=== PATIENT | female | born 1950 | race Hispanic/Latino ===

== ENCOUNTER 2023-04-21 23:52 | Emergency (ER) | payer MEDICARE, OTHER ==
[~2023-04-21] VITALS: Ht 157.5 cm; Wt 69.4 kg
[2023-04-22] MEDS ORDERED: DEXAMETHASONE SOD PHOSPHATE 4 MG/ML 1ML VIAL IVP ONE (01:00)
[2023-04-22] MEDS ORDERED: GABAPENTIN 300 MG CAPSULE PO SCH (01:00)
[2023-04-22] MEDS ORDERED: DEXAMETHASONE SOD PHOSPHATE 4 MG/ML 1ML VIAL IM ONE (01:00)
[2023-04-22] MEDS ORDERED: IBUPROFEN 800 MG TAB PO ONE (01:00)
[2023-04-22 01:01] VITALS: BP 17/86; PULSE 76; RESP 16; O2SAT 98
[2023-04-22] MEDS ORDERED: IBUP-1493 PO (01:28)
[2023-04-22] MEDS ORDERED: GABA300C PO (01:28)
[2023-04-22] MEDS ORDERED: PRED20TA3 PO (01:28)
[2023-04-22] MEDS ORDERED: TAMS-1 PO (01:28)
== END 2023-04-22 01:45 | disposition home or self-care (01) ==
LOC: EDH 23:52
DX: M54.12 Radiculopathy, cervical region (principal); N88.2 Stricture and stenosis of cervix uteri; M19.09 Primary osteoarthritis, other specified site; E11.9 Type 2 diabetes mellitus without complications; E78.00 Pure hypercholesterolemia, unspecified; I10 Essential (primary) hypertension; Z90.49 Acquired absence of other specified parts of digestive tract
CPT/HCPCS: 99285; 72125; 96372; J1100

== ENCOUNTER 2023-04-28 04:26 | Emergency (ER) | payer OTHER ==
[~2023-04-28] VITALS: Ht 157.5 cm; Wt 68.0 kg
[~2023-04-28 04:26] MED LIST: GABA300C PO; IBUP-1493 PO; PRED20TA3 PO; TAMS-1 PO
[2023-04-28 05:36] LABS: BASOPHILS # (AUTO) 0.01 K/uL (0.00-0.20); BASOPHILS % (AUTO) 0.1 % (0.0-5.0); EOSINOPHILS # (AUTO) 0.05 K/uL (0.00-0.70); EOSINOPHILS % (AUTO) 0.5 % (0.0-8.0); HEMATOCRIT 35.8 % (36-48); IMMATURE GRANULOCYTE ABSOLUTE 0.08 K/uL (0-1); LYMPHOCYTES # (AUTO) 3.5 K/uL (1.0-4.8); LYMPHOCYTES % (AUTO) 31.8 % (21.0-51.0); MEAN CORPUSCULAR HEMOGLOBIN 30.9 pg (27.0-33.0); MEAN CORPUSCULAR HGB CONC 34.4 g/dL (32.0-36.0); MEAN CORPUSCULAR VOLUME 89.9 fL (79-99); MONOCYTES # (AUTO) 1.1 K/uL (0.1-1.0); MONOCYTES % (AUTO) 10.3 % (3.0-13.0); NEUTROPHILS # (AUTO) 6.2 K/uL (1.8-7.7); NEUTROPHILS % (AUTO) 56.6 % (40.0-77.0); PLATELET COUNT (AUTO) 391 K/uL (130-400); RED BLOOD CELL COUNT(AUTO) 3.98 MIL/uL (4.00-5.50); RED CELL DISTRIBUTION WIDTH 12.6 % (11.0-15.5)
[2023-04-28 05:55] LABS: APPEARANCE,URINE CLEAR (CLEAR); BILIRUBIN,URINE NEGATIVE (NEGATIVE); COLOR,URINE COLORLESS (YELLOW); GLUCOSE, URINE (UA) NEGATIVE (NEGATIVE); KETONES,URINE NEGATIVE (NEGATIVE); LEUKOCYTE ESTERASE ,URINE NEGATIVE Leu/uL (NEGATIVE); NITRATE,URINE NEGATIVE (NEGATIVE); OCCULT BLOOD,URINE NEGATIVE (NEGATIVE); PH,URINE 6.5 (5.0-8.0); PROTEIN,URINE NEGATIVE (NEGATIVE); UROBILINOGEN,URINE 0.2 mg/dL (0.2-1.0)
[2023-04-28 05:55] LABS: CREATININE 0.8 mg/dL (0.5-1.5); POTASSIUM 4.1 mmol/L (3.5-5.1)
[2023-04-28 05:56] LABS: ADD UA MICROSCOPIC NO
[2023-04-28 06:01] LABS: ALBUMIN 3.3 g/dL (3.5-5.0); BILIRUBIN,TOTAL 0.4 mg/dL (0.2-1.0); MAGNESIUM 2.2 mg/dL (1.80-2.40); TOTAL PROTEIN, SERUM 6.5 g/dL (6.0-8.3)
[2023-04-28] MEDS ORDERED: CLONIDINE HCL 0.2 MG TABLET PO ONE (06:30)
[2023-04-28] MEDS ORDERED: MORPHINE 2 MG SYG IM ONE (06:30)
[2023-04-28] MEDS ORDERED: ONDANSETRON 4MG INJ IVP ONE (06:30)
[2023-04-28 07:50] VITALS: BP 118/63; PULSE 70; RESP 16; O2SAT 99
== END 2023-04-28 07:51 | disposition home or self-care (01) ==
LOC: EDH 04:26
DX: M54.12 Radiculopathy, cervical region (principal); M19.91 Primary osteoarthritis, unspecified site; E11.9 Type 2 diabetes mellitus without complications; E78.00 Pure hypercholesterolemia, unspecified; I10 Essential (primary) hypertension; M19.011 Primary osteoarthritis, right shoulder; Z79.1 Long term (current) use of non-steroidal anti-inflammatories (NSAID); Z79.899 Other long term (current) drug therapy; Z90.49 Acquired absence of other specified parts of digestive tract
CPT/HCPCS: 99285; 96374; 71045; 82550; 83735; 84484; 80053; 85025; 81003; 36415; 96372; 93005; J2270; J2405

== ENCOUNTER 2023-09-09 21:16 | Emergency (ER) | payer OTHER ==
[~2023-09-09] VITALS: Ht 157.5 cm; Wt 71.2 kg
[2023-09-09 21:51] LABS: BASOPHILS # (AUTO) 0.03 K/uL (0.00-0.20); BASOPHILS % (AUTO) 0.4 % (0.0-5.0); EOSINOPHILS # (AUTO) 0.04 K/uL (0.00-0.70); EOSINOPHILS % (AUTO) 0.6 % (0.0-8.0); HEMATOCRIT 32.4 % (36-48); IMMATURE GRANULOCYTE ABSOLUTE 0.01 K/uL (0-1); LYMPHOCYTES % (AUTO) 28.5 % (21.0-51.0); MEAN CORPUSCULAR HEMOGLOBIN 30.5 pg (27.0-33.0); MEAN CORPUSCULAR HGB CONC 34.3 g/dL (32.0-36.0); MONOCYTES # (AUTO) 0.4 K/uL (0.1-1.0); MONOCYTES % (AUTO) 6.2 % (3.0-13.0); NEUTROPHILS # (AUTO) 4.5 K/uL (1.8-7.7); NEUTROPHILS % (AUTO) 64.2 % (40.0-77.0); PLATELET COUNT (AUTO) 344 K/uL (130-400); RED BLOOD CELL COUNT(AUTO) 3.64 MIL/uL (4.00-5.50); RED CELL DISTRIBUTION WIDTH 12.1 % (11.0-15.5); WHITE BLOOD COUNT (AUTO) 7.1 K/uL (4.8-10.8)
[2023-09-09] MEDS: KETOROLAC 15MG/ML VIAL (15MG/ML) IM ONE (22:00)
[2023-09-09] MEDS: AMLODIPINE 5 MG TAB PO ONE (22:01)
[2023-09-09 22:03] LABS: CREATININE 0.9 mg/dL (0.5-1.0); POTASSIUM 4.1 mmol/L (3.5-5.1)
[2023-09-09 22:07] LABS: ALBUMIN 3.7 g/dL (3.5-5.0); BILIRUBIN,TOTAL 0.4 mg/dL (0.2-1.0); TOTAL PROTEIN, SERUM 6.8 g/dL (6.0-8.3)
[2023-09-09] MEDS ORDERED: OXYC-38 PO (22:22)
[2023-09-09] MEDS ORDERED: CYCL10TA16 PO (22:22)
[2023-09-09 22:49] VITALS: BP 160/76; PULSE 75; RESP 20; O2SAT 96
== END 2023-09-09 23:13 | disposition home or self-care (01) ==
LOC: EDH 21:16
DX: M48.02 Spinal stenosis, cervical region (principal); M47.22 Other spondylosis with radiculopathy, cervical region; I10 Essential (primary) hypertension; E78.00 Pure hypercholesterolemia, unspecified; E11.9 Type 2 diabetes mellitus without complications; Z79.899 Other long term (current) drug therapy; Z98.890 Other specified postprocedural states
CPT/HCPCS: 99284; 84484; 80053; 85025; 36415; 96372; 93005; J1885

== ENCOUNTER 2024-05-20 17:38 | Observation (INO) | payer OTHER ==
[~2024-05-20] VITALS: Ht 154.9 cm; Wt 67.6 kg
[~2024-05-20 17:38] MED LIST changes: +CYCL10TA16 PO; +OXYC-38 PO
--- NOTE | 2024-05-20 18:12 | EKG ---
[facility] Test Date: 2024-05-20 Test Time: 18:09:21 Pat Name: VIVIANA KULKARNI Department: [facility] Room: ED Gender: F Corporate Driver: [id number] Requested By: ANGEL HERNANDEZ Order Number: [id number] Reading MD: Checo Bill Measurements Intervals [place] Rate: 82 P: 146 ME: 152 QRS: 46 QRSD: 78 T: 122 QT: 353 QTc: 413 Interpretive Statements Sinus or ectopic atrial rhythm Probable left atrial enlargement Low voltage, extremity leads Abnormal T, consider ischemia, lateral leads Compared to ECG 09/09/2023 21:48:07 Ectopic atrial rhythm now present T-wave abnormality now present Possible ischemia now present Sinus rhythm no longer present Electronically Signed On 05-21-2024 19:13:04 FIGURINE MAKER by Checo Bill Please click the below link to view image of tracing.
--- NOTE | 2024-05-20 18:31 | HMCIMG ---
CT HEAD WITHOUT CONTRAST INDICATION: Headache TECHNIQUE: Noncontrast axial helical CT images from the vertex through the skull base using 5 mm slice thickness without contrast material. CT was performed with one or more of the following dose reduction techniques: Automated exposure control, adjustment of the mA and/or kV according to patient size, or use of iterative reconstruction technique. COMPARISON: None FINDINGS: The cerebral and cerebellar hemispheres are age-appropriate in appearance. No evidence for abnormal extra-axial fluid collections or masses. The ventricles and sulci are normal in size and configuration. No evidence for intracranial parenchymal, epidural, or subdural hemorrhage, mass effect or midline shift. The will-white matter differentiation is well preserved. No secondary evidence to suggest acute ischemia. The brainstem and cerebellum appear normal. The visualized orbits appear unremarkable. The visible paranasal sinuses and mastoid air cells are clear. The calvarium appears normal. IMPRESSION: No acute intracranial process identified.
[2024-05-20 19:07] LABS: BASOPHILS # (AUTO) 0.01 K/uL (0.00-0.20); BASOPHILS % (AUTO) 0.2 % (0.0-5.0); HEMATOCRIT 33.9 % (36-48); IMMATURE GRANULOCYTE ABSOLUTE 0.01 K/uL (0-1); LYMPHOCYTES # (AUTO) 1.4 K/uL (1.0-4.8); LYMPHOCYTES % (AUTO) 23.8 % (21.0-51.0); MEAN CORPUSCULAR HEMOGLOBIN 30.7 pg (27.0-33.0); MEAN CORPUSCULAR HGB CONC 34.2 g/dL (32.0-36.0); MEAN CORPUSCULAR VOLUME 89.7 fL (79-99); MONOCYTES # (AUTO) 0.2 K/uL (0.1-1.0); NEUTROPHILS # (AUTO) 4.2 K/uL (1.8-7.7); NEUTROPHILS % (AUTO) 71.8 % (40.0-77.0); PLATELET COUNT (AUTO) 470 K/uL (130-400); RED BLOOD CELL COUNT(AUTO) 3.78 MIL/uL (4.00-5.50); RED CELL DISTRIBUTION WIDTH 11.9 % (11.0-15.5); WHITE BLOOD COUNT (AUTO) 5.8 K/uL (4.8-10.8)
[2024-05-20 19:08] LABS: CREATININE 0.6 mg/dL (0.5-1.0); POTASSIUM 4.2 mmol/L (3.5-5.1)
[2024-05-20 19:12] LABS: MAGNESIUM 1.6 mg/dL (1.80-2.40)
[2024-05-20 19:17] LABS: APPEARANCE,URINE CLEAR (CLEAR); BILIRUBIN,URINE NEGATIVE (NEGATIVE); COLOR,URINE LIGHT-YELLOW (YELLOW); GLUCOSE, URINE (UA) NEGATIVE (NEGATIVE); KETONES,URINE 5 mg/dL (NEGATIVE); LEUKOCYTE ESTERASE ,URINE 75 Leu/uL (NEGATIVE); NITRATE,URINE NEGATIVE (NEGATIVE); OCCULT BLOOD,URINE NEGATIVE (NEGATIVE); PROTEIN,URINE NEGATIVE (NEGATIVE); UROBILINOGEN,URINE 0.2 mg/dL (0.2-1.0)
[2024-05-20 19:18] LABS: ADD UA MICROSCOPIC YES
[2024-05-20 19:20] LABS: MUCUS,URINE RARE LPF (None Seen); OTHER CASTS, URINE 1 /LPF (None Seen); SQUAMOUS EPITHELIAL CELL,UR RARE /HPF (0-2)
[2024-05-20 19:31] LABS: B-TYPE NATRIURETIC PEPTIDE 71 pg/mL (0-100)
--- NOTE | 2024-05-20 19:57 | ERN ---
ED Note History of Present Illness Stated Complaint: HEADACHE, HIGH BLOOD PRESSURE, WEAKNESS Chief Complaint: Hypertension Time Seen by MD: 17:43 Time Seen by Midlevel: 17:43 Dictation: The patient is a 73-year-old female with a history of hypertension, hyperlipidemia, prediabetes who presents to the emergency department with complaints of frontal headache, nausea nonbloody vomiting, weakness onset 6:00 a.m.. Patient reports also that her blood pressure has been elevated at home. Reports blood pressure of 204/114. Denies any chest pain or shortness of breath. Denies any use of blood thinners. Denies any head trauma. Allergies: Coded Allergies: No Known Drug Allergies (Unverified Allergy, Unknown, 04/21/23) Home Meds Active Scripts Oxycodone HCl/Acetaminophen (Percocet 5-325 mg Tablet) 5 Mg-325 Mg Tablet, 1 EACH PO q8 for pain, #16 TAB 0 Refills Prov:TEVIN TIERNEY MD 09/09/23 Cyclobenzaprine HCl (Flexeril) 10 Mg Tab, 5 MG PO TID for muscle sstiffness, #14 TAB 0 Refills Prov:TEVIN TIERNEY MD 09/09/23 Prednisone (Prednisone) 20 Mg Tablet, 1 TAB PO AD for 6 Days, #14 TAB 0 Refills TAKE 3 TAB BY MOUTH daily X3 DAYS, THEN TAKE 2 TAB BY MOUTH daily X2 DAYS, THEN TAKE 1 TAB BY MOUTH ONCE A DAY X1 DAY. Prov:BAIRON TRAVIS MD 04/22/23 Tamsulosin HCl (Flomax) 0.4 Mg Cap.er.24h, 0.4 MG PO DAILY, #10 CAPSULE. Prov:BAIRON TRAVIS MD 04/22/23 Ibuprofen (Motrin/Advil) 800 Mg Tab, 800 MG PO TID, #30 TAB Prov:BAIRON TRAVIS MD 04/22/23 Gabapentin (Neurontin) 300 Mg Capsule, 300 MG PO TID, #60 CAP Prov:BAIRON TRAVIS MD 04/22/23 Past Medical History Past Medical History: Diabetes-Type II, High Cholesterol, Hypertension Additional Past Medical Hx: RT SHOULDER ARTHRITIS Surgical History: None Family History: Negative Social History: Negative, Lives with family History: Not Applicable RN Note Reviewed/Agreed w/PFSH: Yes Review of System Dictation Constitutional: Negative for fever,chills, and weight loss Eyes: Negative for injury, pain,redness, and discharge ENT: Negative for injury,pain or swelling Cardiovascular: Negative for chest pain, palpitations, and edema Respiratory: Negative for shortness of breath, cough, and wheezing, Abdomen/GI: Negative for abdominal pain, , diarrhea, and constipation positive for nausea and vomiting Back: Negative for injury and pain : Negative for injury, bleeding and discharge MS/Extremity: Negative for injury and deformity Skin: Negative for rash, and discoloration Neuro: Negative for numbness, tingling, and seizure positive for headache, weakness, Psych: Negative for suicide ideation, homicidal ideation, and hallucinations Initial Vital Sign VS Vital Signs Date Time Temp Pulse Resp B/P (MAP) Pulse Ox O2 Delivery O2 Flow Rate FiO2 05/20/24 18:47 98.1 85 20 182/93 98 Room Air 05/20/24 22:07 0 21 Physical Exam Dictation Vital Signs reviewed General Appearance: Alert, oriented x 3, no acute distress, well developed, nourished. Head and Face: non-traumatic. Eyes: PERRL, pink conjunctivas, eyelid no trauma, anterior chamber with arcus senilis. Ears: Pinnas intact and no signs of trauma or erythema ear canals clear and no discharge TM no erythema Nose: No discharge, no bleeding. Oropharynx: Mouth normal, tongue pink. pharynx clear,no erythema, tonsils no exudates, no abscesses noted, mucous membrane moist Neck: Supple, non-tender, no thyromegaly, no masses, no JVD, no bruits Breast:Deferred Chest:No tenderness, no crepitus, no paradoxical movement, no retractions Lungs:Clear, well-ventilated, symmetric, no rales, no wheezing, no rhonchi, no stridor, good breath sounds bilaterally Heart: Regular rate, regular rhythm, no murmur, no gallops Vascular: no peripheral edema, Abdomen: Soft, positive bowel sounds, nondistended, no guarding, nontender, no rebound, no masses no hepatomegaly, no splenomegaly, no Herrmann's sign, no hernias. Rectal: Deferred Genital: Deferred Neurological: Normal speech, motor function intact, sensory function intact , upper extremities equal in strength, lower extremities equal in strength Musculoskeletal: Neck nontender, full range of motion, back nontender, full range of motion, Extremities: nontender, full range of motion Skin: Color pink, dry, no turgor, no rash, no lacerations, no abrasions, no contusions. Lymphatic: Deferred Results (Laboratory/Radiology) Laboratory/Radiology Laboratory Tests Test 05/20/24 18:25 05/20/24 18:28 White Blood Count 5.8 K/uL (4.8-10.8) Red Blood Count 3.78 MIL/uL (4.00-5.50) L Hemoglobin 11.6 g/dL (12.0-16.0) L Hematocrit 33.9 % (36-48) L Mean Corpuscular Volume 89.7 fL (79-99) Mean Corpuscular Hemoglobin 30.7 pg (27.0-33.0) Mean Corpuscular Hemoglobin Concent 34.2 g/dL (32.0-36.0) Red Cell Distribution Width 11.9 % (11.0-15.5) Platelet Count 470 K/uL (130-400) H Mean Platelet Volume 9.3 fL (7.5-10.5) Immature Granulocyte % (Auto) 0.2 % (0-1) Neutrophils (%) (Auto) 71.8 % (40.0-77.0) Lymphocytes (%) (Auto) 23.8 % (21.0-51.0) Monocytes (%) (Auto) 4.0 % (3.0-13.0) Eosinophils (%) (Auto) 0.0 % (0.0-8.0) Basophils (%) (Auto) 0.2 % (0.0-5.0) Neutrophils # (Auto) 4.2 K/uL (1.8-7.7) Lymphocytes # (Auto) 1.4 K/uL (1.0-4.8) Monocytes # (Auto) 0.2 K/uL (0.1-1.0) Eosinophils # (Auto) 0.00 K/uL (0.00-0.70) Basophils # (Auto) 0.01 K/uL (0.00-0.20) Absolute Immature Granulocyte (auto 0.01 K/uL (0-1) Nucleated Red Blood Cells 0.0 % (0.0-0.19) Sodium Level 129 mmol/L (136-145) L Potassium Level 4.2 mmol/L (3.5-5.1) Chloride Level 93 mmol/L (101-111) L Carbon Dioxide Level 29 mmol/L (21-32) Blood Urea Nitrogen 7 mg/dL (7-18) Creatinine 0.6 mg/dL (0.5-1.0) Glomerular Filtration Rate Calc 95 mL/min (>90) Random Glucose 150 mg/dL (70-105) H Total Calcium 8.9 mg/dL (8.5-10.1) Magnesium Level 1.60 mg/dL (1.80-2.40) L Total Creatine Kinase 72 U/L (21-232) Troponin I High Sensitivity < 4 ng/L (4-50) L B-Type Natriuretic Peptide 71 pg/mL (0-100) Urine Color LIGHT-YELLOW (YELLOW) Urine Appearance CLEAR (CLEAR) Urine pH 6.0 (5.0-8.0) Urine Specific [place] 1.016 (1.001-1.031) Urine Protein NEGATIVE mg/dL (NEGATIVE) Urine Glucose (UA) NEGATIVE mg/dL (NEGATIVE) Urine Ketones 5 mg/dL (NEGATIVE) H Urine Occult Blood NEGATIVE (NEGATIVE) Urine Nitrate NEGATIVE (NEGATIVE) Urine Bilirubin NEGATIVE mg/dL (NEGATIVE) Urine Urobilinogen 0.2 mg/dL (0.2-1.0) Urine Leukocyte Esterase 75 Cristina/uL (NEGATIVE) H Urine RBC 2-5 /HPF (0-1) H Urine WBC 6-10 /HPF (0-1) H Urine Squamous Epithelial Cells RARE /HPF (0-2) Urine Bacteria None /HPF (None Seen) Urine Other Casts 1 /LPF (None Seen) REASON: headache ORDERING PHYSICIAN: ANGEL HERNANDEZ PROCEDURE: HEAD WO - CT HEAD/BRAIN W/O CONTRAST CT HEAD WITHOUT CONTRAST INDICATION: Headache TECHNIQUE: Noncontrast axial helical CT images from the vertex through the skull base using 5 mm slice thickness without contrast material. CT was performed with one or more of the following dose reduction techniques: Automated exposure control, adjustment of the mA and/or kV according to patient size, or use of iterative reconstruction technique. COMPARISON: None FINDINGS: The cerebral and cerebellar hemispheres are age-appropriate in appearance. No evidence for abnormal extra-axial fluid collections or masses. The ventricles and sulci are normal in size and configuration. No evidence for intracranial parenchymal, epidural, or subdural hemorrhage, mass effect or midline shift. The will-white matter differentiation is well preserved. No secondary evidence to suggest acute ischemia. The brainstem and cerebellum appear normal. The visualized orbits appear unremarkable. The visible paranasal sinuses and mastoid air cells are clear. The calvarium appears normal. IMPRESSION: No acute intracranial process identified. REASON: cough ORDERING PHYSICIAN: ANGEL HERNANDEZ PATIENT ACCOUNT ANALYST PROCEDURE: CXR1VW - CHEST 1VW INDICATION: cough TECHNIQUE: CHEST 1VW COMPARISON: 04/20/2023 FINDINGS AND IMPRESSION: No acute consolidation or pleural effusion. Cardiac silhouette is within normal limits. Mild degenerative changes of the spine. The visualized upper abdomen appears unremarkable. Labs Reviewed?: Yes EKG: (+) rhythm (Sinus rhythm) EKG Comment: Date:05/20/2024 Time:1809 Ventricular rate:82 MS interval:152 QRS duration:78 QT/QTc:413 EKG interpretation: Sinus rhythm Reviewed by ED Attending no STEMI ED Course ED Course Orders Procedure Category Date Status Time Cbc With Differential LAB 05/20/24 Complete 18:00 B-Type Natriuretic LAB 05/20/24 Complete Peptide 18:00 Chest 1vw RAD 05/20/24 Resulted 18:00 12 Lead Ekg Tracing- EKG 05/20/24 Complete Technical 18:00 Magnesium LAB 05/20/24 Complete 18:00 Creatine Kinase, Total LAB 05/20/24 Complete 18:00 Troponin I High LAB 05/20/24 Complete Sensitivity 18:00 Urinalysis Profile LAB 05/20/24 Complete 18:00 Basic Metabolic Panel LAB 05/20/24 Complete 18:00 Ct Head/Brain W/O CT 05/20/24 Resulted Contrast 18:00 0.9%Nacl 1000ml (Ns PHA 05/20/24 In Process 1000ml) 19:00 Acetaminophen 500mg PHA 05/20/24 Complete Tab (Tylenol 500mg T 19:00 Hydralazine 20mg Inj PHA 05/20/24 Complete (Apresoline 20mg In 19:00 Culture Urine KAILYN 05/20/24 In Process 19:18 Ceftriaxone 1g Vial PHA 05/20/24 Complete (Rocephine 1g Inj) 20:30 Magnesium 2gm Premix PHA 05/20/24 In Process 50ml (Magnesium 2gm 20:30 Metoclopramide 10 PHA 05/20/24 Complete Mg/2 Ml Vial (Reglan 1 22:30 Diphenhydramine Hcl PHA 05/20/24 Complete (Benadryl Inj) 22:30 Edm Admit Bridge Order ADM 05/20/24 Transmitted 23:38 Vital Signs(Adult CPOE 05/20/24 Transmitted Hospitalist) 23:36 Nurse To Enter Home CPOE 05/20/24 Transmitted Medication 23:36 Admit Orders ADM 05/20/24 Transmitted 23:36 Consistent Carb DIET 05/21/24 Transmitted Breakfast Cbc With Differential LAB 05/21/24 Verified 04:00 Comprehensive LAB 05/21/24 Verified Metabolic Panel 04:00 0.9%Nacl 1000ml (Ns PHA 05/21/24 In Process 1000ml) 00:00 Ceftriaxone 1g Vial PHA 05/21/24 Logged (Rocephine 1g Inj) 00:00 Ondansetron 4mg Inj PHA 05/21/24 In Process (Zofran 4mg Inj) 00:00 Pantoprazole 40mg Inj PHA 05/21/24 In Process (Protonix 40mg Inj 09:00 Heparin 5,000 Unit PHA 05/21/24 In Process Vial (Heparin 5,000 U 00:00 *Nursing CPOE 05/20/24 Transmitted Communication: 23:36 Current Medications Medications (Trade) Dose Ordered Sig/Sharri Route PRN Reason Start Time Stop Time Status Last Admin Dose Admin Acetaminophen (TYLenol 500MG TAB) 1,000 mg ONCE ONCE PO 05/20/24 19:00 05/20/24 19:01 DC 05/20/24 22:19 Ceftriaxone Sodium (ROCEphine 1G INJ) 1 gm ONCE ONCE IVPB 05/20/24 20:30 05/20/24 20:31 DC 05/20/24 22:18 Ceftriaxone Sodium (ROCEphine 1G INJ) 1 gm ONCE ONCE IVPB 05/21/24 00:00 05/21/24 00:01 UNV Diphenhydramine HCl (BENAdryl INJ) 12.5 mg ONCE ONCE IV 05/20/24 22:30 05/20/24 22:31 DC 05/20/24 23:16 Heparin Sodium (Porcine) (HEParin 5,000 UNIT VIAL) 5,000 unit Q12H SQ 05/21/24 00:00 06/20/24 00:00 Hydralazine HCl (APRESOLine 20MG INJ) 10 mg ONCE ONCE IV 05/20/24 19:00 05/20/24 19:01 DC 05/20/24 22:19 Magnesium Sulfate 50 ml @ 0 mls/hr PROTOCOL IV 05/20/24 20:30 06/19/24 20:29 Metoclopramide HCl (regLAN 10MG IV) 10 mg ONCE ONCE IVP 05/20/24 22:30 05/20/24 22:31 DC 05/20/24 23:16 Ondansetron HCl (zoFRAN 4MG INJ) 4 mg Q4H PRN IVP NAUSEA/VOMITING 05/21/24 00:00 06/20/24 00:00 Pantoprazole Sodium (PROTonix 40MG INJ) 40 mg DAILY IVP 05/21/24 09:00 06/20/24 08:59 Sodium Chloride 1,000 ml @ 100 mls/hr Q10H IV 05/21/24 00:00 06/20/24 00:00 Sodium Chloride 1,000 ml @ 125 mls/hr ONCE ONCE IV 05/20/24 19:00 05/21/24 02:59 05/20/24 22:20 Vital Signs Date Time Temp Pulse Resp B/P (MAP) Pulse Ox O2 Delivery O2 Flow Rate FiO2 05/20/24 22:07 97.9 81 17 181/91 97 Room Air* 0 21 05/20/24 18:47 98.1 85 20 182/93 98 Room Air Medical Decision Making MDM MDM: The patient is a 73-year-old female with a history of hypertension, hyperlipidemia, prediabetes who presents to the emergency department with complaints of frontal headache, nausea nonbloody vomiting, weakness onset 6:00 a.m.. Patient reports also that her blood pressure has been elevated at home. Reports blood pressure of 204/114. Denies any chest pain or shortness of breath. Denies any use of blood thinners. Denies any head trauma. CBC showed no leukocytosis, mild normocytic anemia, chemistry showed mild hyponatremia, hypochloremia, normal renal function, hypomagnesemia. Patient received a L of normal saline and magnesium replacement. Troponin negative. Urinalysis with positive leukocyte esterase. Patient received dose of Rocephin. CT head showed no acute pathology. Patient will be admitted for further monitoring. Blood pressure control Differential diagnosis: Hypertensive urgency, hypertensive emergency, intracer ebral hemorrhage, tension headache, dehydration Comorbidities: Hypertension, hyperlipidemia, prediabetes Tests considered and not ordered secondary to shared decision making include: none Previous outside records reviewed: none Risk of complication and/or morbidity or mortality of patient management: The patient meets criteria for admission. Need for emergency major/minor surgery: No There are no social concerns with this patient. I independently interpreted the tests I ordered (labs, urinalysis, etc.). I discussed the case with the hospitalist for admission. I discussed the case with the following specialists: none. Historian: [email or web address]. I independently interpreted imaging studies and EKGs that I ordered (US, CT, XR, EKG, etc.). External chart review: none. Medical management and examination interpretation discussions were had by me with other qualified healthcare professionals as indicated for the patient's care. DX & DISP Disposition: Inpatient Decision to Admit Date: May 20, 2024 Decision to Admit Time: 23:37 Departure Impression: Primary Impression: Hypertensive urgency Additional Impressions: Headache, Nausea and vomiting, Hyponatremia, Hypochloremia, UTI (urinary tract infection), Hypomagnesemia, Anemia, Weakness Critical Time: 30 minutes (Critical Care Procedure NoteAuthorized and Performed by: meTotal critical care time: Approximately 36 minutesDue to a high probability of clinically significant, life threatening deterioration, the patient required my highest level of preparedness to intervene emergently and I personally spent this critical care time directly and personally managing the patient. This critical care time included obtaining a history; examining the patient; pulse oximetry; ordering and review of studies; arranging urgent treatment with development of a management plan; evaluation of patient's re sponse to treatment; frequent reassessment; and, discussions with other providers.This critical care time was performed to assess and manage the high probability of imminent, life-threatening deterioration that could result in multi-organ failure. It was exclusive of separately billable procedures and treating other patients and teaching time.Please see MDM section and the rest of the note for further information on patient assessment and treatment.) Condition: Stable Referrals: AMIE HENRY MD (PCP) I have reviewed the case, and I agree with, Diagnosis and Plan I performed a substantive portion of the visit. I have reviewed and personally made and approve the management plan that is documented in the notes by myself with MARGUERITE/resident. I acknowledged full responsibility for the patient's management plan. ANGEL HERNANDEZ May 20, 2024 19:57 ALEXANDRE COX DO May 20, 2024 23:45
--- NOTE | 2024-05-20 20:18 | HMCIMG ---
INDICATION: cough TECHNIQUE: CHEST 1VW COMPARISON: 04/20/2023 FINDINGS AND IMPRESSION: No acute consolidation or pleural effusion. Cardiac silhouette is within normal limits. Mild degenerative changes of the spine. The visualized upper abdomen appears unremarkable.
--- NOTE | 2024-05-20 21:54 | NUR ---
PT CARE ASSUMED AT THIS TIME
[2024-05-20] MEDS: cefTRIAXone 1G VIAL IVPB ONE (22:18)
[2024-05-20] MEDS: acetaMINOPHEN 500 MG TABLET PO ONE (22:19)
[2024-05-20] MEDS: hydrALAZine 20MG/ML VIAL IV ONE (22:19)
[2024-05-20] MEDS: 0.9%NACL 1000ML 1,000 ML IV ONE (22:20)
[2024-05-20] MEDS: DiphenhydrAMINE HCL 50 MG/ML VIAL IV ONE (23:16)
[2024-05-20] MEDS: metoCLOPRAmide 10 MG/2 ML VIAL IVP ONE (23:16)
[2024-05-21] MEDS: ondanSETRON 4MG INJ IVP PRN (01:17)
[2024-05-21] MEDS: MAGNESIUM 2GM PREMIX 50ML 50 ML IV SCH (01:18)
[2024-05-21] MEDS: HEParin 5,000 UNIT VIAL SQ SCH (01:55)
[2024-05-21] MEDS: 0.9%NACL 1000ML 1,000 ML IV SCH (01:56)
--- NOTE | 2024-05-21 06:50 | NUR ---
SPOKE TO DR. JOHNSON ORDERS GIVEN FOR PAIN MEDICATION
--- NOTE | 2024-05-21 06:54 | NUR ---
VERBALLY ORDERED FOR DISCHARGE TO BE DONE TODAY.
[2024-05-21] MEDS ORDERED: ibuPROFEN 200 MG TAB PO ONE (07:00)
--- NOTE | 2024-05-21 07:09 | NUR ---
REPORT GIVEN TO ZACK CERVANTES AT THIS TIME
[2024-05-21 07:28] LABS: BASOPHILS # (AUTO) 0.02 K/uL (0.00-0.20); BASOPHILS % (AUTO) 0.3 % (0.0-5.0); EOSINOPHILS # (AUTO) 0.01 K/uL (0.00-0.70); EOSINOPHILS % (AUTO) 0.2 % (0.0-8.0); HEMATOCRIT 33.6 % (36-48); IMMATURE GRANULOCYTE ABSOLUTE 0.01 K/uL (0-1); LYMPHOCYTES # (AUTO) 1.7 K/uL (1.0-4.8); LYMPHOCYTES % (AUTO) 26.9 % (21.0-51.0); MEAN CORPUSCULAR HEMOGLOBIN 30.4 pg (27.0-33.0); MEAN CORPUSCULAR HGB CONC 34.2 g/dL (32.0-36.0); MEAN CORPUSCULAR VOLUME 88.9 fL (79-99); MONOCYTES # (AUTO) 0.3 K/uL (0.1-1.0); MONOCYTES % (AUTO) 5.5 % (3.0-13.0); NEUTROPHILS # (AUTO) 4.1 K/uL (1.8-7.7); NEUTROPHILS % (AUTO) 66.9 % (40.0-77.0); PLATELET COUNT (AUTO) 431 K/uL (130-400); RED BLOOD CELL COUNT(AUTO) 3.78 MIL/uL (4.00-5.50); RED CELL DISTRIBUTION WIDTH 11.9 % (11.0-15.5); WHITE BLOOD COUNT (AUTO) 6.2 K/uL (4.8-10.8)
[2024-05-21 07:43] LABS: ALBUMIN 3.6 g/dL (3.5-5.0); BILIRUBIN,TOTAL 0.5 mg/dL (0.2-1.0); CREATININE 0.6 mg/dL (0.5-1.0); POTASSIUM 3.8 mmol/L (3.5-5.1); TOTAL PROTEIN, SERUM 7.1 g/dL (6.0-8.3)
[2024-05-21 07:46] LABS: SARS-CoV-2, RNA, NAAT NEGATIVE SARS CoV-2 (NEGATIVE)
[2024-05-21 07:50] VITALS: BP 170/74; PULSE 81; RESP 12; TEMP 97.8; O2SAT 97
[2024-05-21 07:52] LABS: INFLUENZA TYPE A Negative For Type A (NEGATIVE); INFLUENZA TYPE B Negative For Type B (NEGATIVE)
[2024-05-21] MEDS ORDERED: PANTOPrazole 40 MG/VIAL IVP SCH (09:00)
[2024-05-21] MEDS ORDERED: cefTRIAXone 1G VIAL IVPB ONE (10:00)
--- NOTE | 2024-05-22 22:30 | HP ---
HISTORY AND PHYSICAL NOTE DATE OF CONSULTATION: 05/22/24 REASON FOR CONSULTATION: Uncontrolled high blood pressure HISTORY OF PRESENT ILLNESS: The patient is a 73-year-old female with a history of hypertension, hyperlipidemia, prediabetes who presents to the emergency department with complaints of frontal headache, nausea nonbloody vomiting, weakness onset 6:00 a.m.. Patient reports also that her blood pressure has been elevated at home. Reports blood pressure of 204/114. Denies any chest pain or shortness of breath. Denies any use of blood thinners. Denies any head trauma. Allergies: Coded Allergies: No Known Drug Allergies (Unverified Allergy, Unknown, 04/21/23) Home Meds Active Scripts Oxycodone HCl/Acetaminophen (Percocet 5-325 mg Tablet) 5 Mg-325 Mg Tablet, 1 EACH PO q8 for pain, #16 TAB 0 Refills Prov:TEVIN TIERNEY MD 09/09/23 Cyclobenzaprine HCl (Flexeril) 10 Mg Tab, 5 MG PO TID for muscle sstiffness, #14 TAB 0 Refills Prov:TEVIN TIERNEY MD 09/09/23 Prednisone (Prednisone) 20 Mg Tablet, 1 TAB PO AD for 6 Days, #14 TAB 0 Refills TAKE 3 TAB BY MOUTH daily X3 DAYS, THEN TAKE 2 TAB BY MOUTH daily X2 DAYS, THEN TAKE 1 TAB BY MOUTH ONCE A DAY X1 DAY. Prov:BAIRON TRAVIS MD 04/22/23 Tamsulosin HCl (Flomax) 0.4 Mg Cap.er.24h, 0.4 MG PO DAILY, #10 CAPSULE. Prov:BAIRON TRAVIS MD 04/22/23 Ibuprofen (Motrin/Advil) 800 Mg Tab, 800 MG PO TID, #30 TAB Prov:BAIRON TRAVIS MD 04/22/23 Gabapentin (Neurontin) 300 Mg Capsule, 300 MG PO TID, #60 CAP Prov:BAIRON TRAVIS MD 04/22/23 Past Medical History Past Medical History: Diabetes-Type II, High Cholesterol, Hypertension Additional Past Medical Hx: RT SHOULDER ARTHRITIS Surgical History: None Family History: Negative Social History: Negative, Lives with family History: Not Applicable RN Note Reviewed/Agreed w/PFSH: Yes Review of System Dictation Constitutional: Negative for fever,chills, and weight loss Eyes: Negative for injury, pain,redness, and discharge ENT: Negative for injury,pain or swelling Cardiovascular: Negative for chest pain, palpitations, and edema Respiratory: Negative for shortness of breath, cough, and wheezing, Abdomen/GI: Negative for abdominal pain, , diarrhea, and constipation positive for nausea and vomiting Back: Negative for injury and pain : Negative for injury, bleeding and discharge MS/Extremity: Negative for injury and deformity Skin: Negative for rash, and discoloration Neuro: Negative for numbness, tingling, and seizure positive for headache, weakness, Psych: Negative for suicide ideation, homicidal ideation, and hallucinations ALLERGIES: Coded Allergies: No Known Drug Allergies (Unverified Allergy, Unknown, 04/21/23) HOME MEDS: Active Scripts Oxycodone HCl/Acetaminophen (Percocet 5-325 mg Tablet) 5 Mg-325 Mg Tablet, 1 EACH PO q8 for pain, #16 TAB 0 Refills Prov:TEVIN TIERNEY MD 09/09/23 Cyclobenzaprine HCl (Flexeril) 10 Mg Tab, 5 MG PO TID for muscle sstiffness, #14 TAB 0 Refills Prov:TEVIN TIERNEY MD 09/09/23 Prednisone (Prednisone) 20 Mg Tablet, 1 TAB PO AD for 6 Days, #14 TAB 0 Refills TAKE 3 TAB BY MOUTH daily X3 DAYS, THEN TAKE 2 TAB BY MOUTH daily X2 DAYS, THEN TAKE 1 TAB BY MOUTH ONCE A DAY X1 DAY. Prov:BAIRON TRAVIS MD 04/22/23 Tamsulosin HCl (Flomax) 0.4 Mg Cap.er.24h, 0.4 MG PO DAILY, #10 CAPSULE. Prov:BAIRON TRAVIS MD 04/22/23 Ibuprofen (Motrin/Advil) 800 Mg Tab, 800 MG PO TID, #30 TAB Prov:BAIRON TRAVIS MD 04/22/23 Gabapentin (Neurontin) 300 Mg Capsule, 300 MG PO TID, #60 CAP Prov:BAIRON TRAVIS MD 04/22/23 PHYSICAL EXAM Physical Exam Dictation Vital Signs reviewed General Appearance: Alert, oriented x 3, no acute distress, well developed, nourished. Head and Face: non-traumatic. Eyes: PERRL, pink conjunctivas, eyelid no trauma, anterior chamber with arcus senilis. Ears: Pinnas intact and no signs of trauma or erythema ear canals clear and no discharge TM no erythema Nose: No discharge, no bleeding. Oropharynx: Mouth normal, tongue pink. pharynx clear,no erythema, tonsils no exudates, no abscesses noted, mucous membrane moist Neck: Supple, non-tender, no thyromegaly, no masses, no JVD, no bruits Breast:Deferred Chest:No tenderness, no crepitus, no paradoxical movement, no retractions Lungs:Clear, well-ventilated, symmetric, no rales, no wheezing, no rhonchi, no stridor, good breath sounds bilaterally Heart: Regular rate, regular rhythm, no murmur, no gallops Vascular: no peripheral edema, Abdomen: Soft, positive bowel sounds, nondistended, no guarding, nontender, no rebound, no masses no hepatomegaly, no splenomegaly, no Herrmann's sign, no hernias. Rectal: Deferred Genital: Deferred Neurological: Normal speech, motor function intact, sensory function intact , upper extremities equal in strength, lower extremities equal in strength Musculoskeletal: Neck nontender, full range of motion, back nontender, full range of motion, Extremities: nontender, full range of motion Skin: Color pink, dry, no turgor, no rash, no lacerations, no abrasions, no contusions. Lymphatic: Deferred LABORATORY RESULTS Laboratory Tests 05/20/24 18:25: White Blood Count 5.8, Red Blood Count 3.78, Hemoglobin 11.6, Hematocrit 33.9, Mean Corpuscular Volume 89.7, Mean Corpuscular Hemoglobin 30.7, Mean Corpuscular Hemoglobin Concent 34.2, Red Cell Distribution Width 11.9, Platelet Count 470, Mean Platelet Volume 9.3, Immature Granulocyte % (Auto) 0.2, Neutrophils (%) (Auto) 71.8, Lymphocytes (%) (Auto) 23.8, Monocytes (%) (Auto) 4.0, Eosinophils (%) (Auto) 0.0, Basophils (%) (Auto) 0.2, Neutrophils # (Auto) 4.2, Lymphocytes # (Auto) 1.4, Monocytes # (Auto) 0.2, Eosinophils # (Auto) 0.00, Basophils # (Auto) 0.01, Absolute Immature Granulocyte (auto 0.01, Nucleated Red Blood Cells 0.0, Sodium Level 129, Potassium Level 4.2, Chloride Level 93, Carbon Dioxide Level 29, Blood Urea Nitrogen 7, Creatinine 0.6, Glomerular Filtration Rate Calc 95, Random Glucose 150, Total Calcium 8.9, Magnesium Level 1.60, Total Creatine Kinase 72, Troponin I High Sensitivity < 4, B-Type Natriuretic Peptide 71 05/20/24 18:28: Urine Color LIGHT-YELLOW, Urine Appearance CLEAR, Urine pH 6.0, Urine Specific [place] 1.016, Urine Protein NEGATIVE, Urine Glucose (UA) NEGATIVE, Urine Ketones 5, Urine Occult Blood NEGATIVE, Urine Nitrate NEGATIVE, Urine Bilirubin NEGATIVE, Urine Urobilinogen 0.2, Urine Leukocyte Esterase 75, Urine RBC 2-5, Urine WBC 6-10, Urine Squamous Epithelial Cells RARE, Urine Bacteria None, Urine Other Casts 1 05/21/24 06:42: White Blood Count 6.2, Red Blood Count 3.78, Hemoglobin 11.5, Hematocrit 33.6, Mean Corpuscular Volume 88.9, Mean Corpuscular Hemoglobin 30.4, Mean Corpuscular Hemoglobin Concent 34.2, Red Cell Distribution Width 11.9, Platelet Count 431, Mean Platelet Volume 9.8, Immature Granulocyte % (Auto) 0.2, Neutrophils (%) (Auto) 66.9, Lymphocytes (%) (Auto) 26.9, Monocytes (%) (Auto) 5.5, Eosinophils (%) (Auto) 0.2, Basophils (%) (Auto) 0.3, Neutrophils # (Auto) 4.1, Lymphocytes # (Auto) 1.7, Monocytes # (Auto) 0.3, Eosinophils # (Auto) 0.01, Basophils # (Auto) 0.02, Absolute Immature Granulocyte (auto 0.01, Nucleated Red Blood Cells 0.0, Sodium Level 126, Potassium Level 3.8, Chloride Level 93, Carbon Dioxide Level 26, Blood Urea Nitrogen 4, Creatinine 0.6, Glomerular Filtration Rate Calc 95, Random Glucose 135, Total Calcium 8.6, Total Bilirubin 0.5, Aspartate Amino Transf (AST/SGOT) 19, Alanine Aminotransferase (ALT/SGPT) 23, Alkaline Phosphatase 85, Total Protein 7.1, Albumin 3.6 05/21/24 07:01: Influenza Type A Antigen Negative For Type A, Influenza Type B Antigen Negative For Type B, SARS-CoV-2, RNA, NAAT NEGATIVE SARS CoV-2 Microbiology Date/Time Source Procedure Growth Status 05/20/24 18:25 Urine,Clean Catch - Final Complete PROBLEM LIST: (1) Weakness ICD Codes: R53.1 - Weakness PLAN Hydrate and monitor SAMUEL JOHNSON MD May 22, 2024 22:30
--- NOTE | 2024-05-22 22:32 | DS ---
Discharge Summary DIAGNOSE(S): [Uncontrolled high blood pressure] HOSPITAL COURSE SUMMARY: [She had amlodipine added to the regimen which improved symptoms and was discharged] HEMATOLOGY TECHNICIAN(S): [] PROCEDURE(S)/TREATMENT(S): [] PROBLEM(S): [] FOLLOW-UP TEST(S): [None] DISCHARGE INSTRUCTIONS: [Follow up with [facility] 2 days] Home Meds Active Scripts Oxycodone HCl/Acetaminophen (Percocet 5-325 mg Tablet) 5 Mg-325 Mg Tablet, 1 EACH PO q8 for pain, #16 TAB 0 Refills Prov:TEVIN TIERNEY MD 09/09/23 Cyclobenzaprine HCl (Flexeril) 10 Mg Tab, 5 MG PO TID for muscle sstiffness, #14 TAB 0 Refills Prov:TEVIN TIERNEY MD 09/09/23 Prednisone (Prednisone) 20 Mg Tablet, 1 TAB PO AD for 6 Days, #14 TAB 0 Refills TAKE 3 TAB BY MOUTH daily X3 DAYS, THEN TAKE 2 TAB BY MOUTH daily X2 DAYS, THEN TAKE 1 TAB BY MOUTH ONCE A DAY X1 DAY. Prov:BAIRON TRAVIS MD 04/22/23 Tamsulosin HCl (Flomax) 0.4 Mg Cap.er.24h, 0.4 MG PO DAILY, #10 CAPSULE. Prov:BAIRON TRAVIS MD 04/22/23 Ibuprofen (Motrin/Advil) 800 Mg Tab, 800 MG PO TID, #30 TAB Prov:BAIRON TRAVIS MD 04/22/23 Gabapentin (Neurontin) 300 Mg Capsule, 300 MG PO TID, #60 CAP Prov:BAIRON TRAVIS MD 04/22/23 SAMUEL JOHNSON MD May 22, 2024 22:32
== END 2024-05-21 07:42 | disposition home or self-care (01) ==
LOC: EDH 17:38 → EDHIP 23:47
PROVIDERS: ADMIT Internal Medicine; ATTEND Internal Medicine
DX: I10 Essential (primary) hypertension (principal); Z20.822 Contact with and (suspected) exposure to COVID-19; I16.0 Hypertensive urgency; N39.0 Urinary tract infection, site not specified; E83.42 Hypomagnesemia; D64.9 Anemia, unspecified; E87.8 Other disorders of electrolyte and fluid balance, not elsewhere classified; E87.1 Hypo-osmolality and hyponatremia; R53.1 Weakness; E78.5 Hyperlipidemia, unspecified; E11.9 Type 2 diabetes mellitus without complications; M19.011 Primary osteoarthritis, right shoulder; Z79.899 Other long term (current) drug therapy
CPT/HCPCS: 96365; 96375 ×2; 82550; 83735; 84484; 80048; 83880; 85025 ×2; 87086; 81001; 36415 ×2; 71045; 70450; 99291; 93005; 96372; 96367; 80053; 87804 ×2; 87635; G0378 ×8; J1200; J7030; J0360; J0696; J2765; J3475; J2405; J1644